=== PATIENT | male | born 1975 | race Caucasian/White ===

== ENCOUNTER 2017-09-21 08:17 | Emergency (ER) | payer OTHER, SELFPAY ==
[2017-09-21] MEDS ORDERED: Adacel (T-DAP) 0.5 ML VIAL ONE (08:57)
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
== END 2017-09-21 09:14 | disposition home or self-care (01) ==
LOC: BURERS 08:17
DX: S00.31XA Abrasion of nose, initial encounter (principal); S00.211A Abrasion of right eyelid and periocular area, initial encounter; V43.52XA Car driver injured in collision with other type car in traffic accident, initial encounter; Y92.411 Interstate highway as the place of occurrence of the external cause
CPT/HCPCS: 70486; 90471; 90715